=== PATIENT | male | born 1995 | race Caucasian/White ===

== ENCOUNTER 2023-08-23 08:36 | Outpatient (CLI) | payer BC, SELFPAY ==
--- NOTE | 2023-08-31 19:48 | WPDHOMESLEEP ---
Sleep Study - Home Unattended Date of Study: 08/23/23 Ordering Provider: Fran Yan APRN Interpreting Provider: Lela Arias, DO Home Sleep Study Type: Watch PAT Height: 1.7 m Weight: 99.79 kg Body Mass Index: 34.4 Neck Circumference (inches): 16 [place]: 8 Reason for Sleep Study Difficulty falling asleep. Unrefreshing sleep Sleep History The patient is a 28-year-old male with asthma, GERD, depression and history of tobacco use that had a sleep study ordered by the pulmonary group for evaluation of sleep apnea. The patient rarely awakens from sleep short of breath. He frequently awakens at night with heartburn, belching or cough. He occasionally snores and is occasionally loud enough that others complain. He frequently has trouble sleeping when he has a cold. He denies waking up gasping for air throughout the night. He denies having breathing problems at night observed by himself or others. He constantly sweats excessively at night. He rarely has heart palpitations or irregular heartbeats during the night. He rarely falls asleep during the day and rarely falls asleep while driving. He rarely experiences loss of muscle tone when extremely emotional. He frequently has trouble at school or work due to sleepiness. He rarely feels unable to move while waking up or falling asleep. He occasionally experiences vivid dreamlike scenes upon awakening or falling asleep. He denies feeling afraid of going to sleep. He rarely has nightmares and frequently remembers his dreams. He constantly has thoughts racing through his mind. He frequently feels sad, depressed and anxious. He frequently has muscular tension. He occasionally notices parts of his body jerk. He occasionally kicks during the night. He occasionally has crawling and aching feelings in his legs but rarely has leg pain during the night. He rarely grinds his teeth during sleep and rarely awakens with morning jaw pain. He is occasionally bothered by pain during the day but rarely awakened by pain during the night. He occasionally wakes up feeling stiff in the morning. He occasionally wakes up with sore or achy muscles. He occasionally wakes up with pain in the neck, spine or other joints. He goes to bed at 9:30 p.m. on weekdays and 11:00 p.m. on the weekends. It takes him 30 minutes up to several hours to fall asleep. He will wake up once throughout the night at most to either urinate or get a drink. He is able to fall back asleep within 10 minutes. He wakes up at 6:00 a.m. on weekdays and 8:00 a.m. on the weekends. He typically gets 7 hours of sleep per night. He will stay in bed for 15 minutes after waking up in the morning. He currently lives with his and child. He denies consuming any caffeinated beverages within 2 hours of bedtime. He denies engaging in physical exercise before bedtime. He will read and watch television before falling asleep. He denies taking naps in afternoon or the evening. He consumes 400 mg a caffeinated beverage per day. He quit smoking cigarettes 1 year ago. He denies alcohol use. He does admit to recreation drug use. [facility] Past Medical History Medical History Abdominal pain Diarrhea Overweight (BMI 25.0-29.9) Social History Social History Smoking status: Current every day smoker Tobacco type: e-cigarettes/vaping Alcohol intake: current Alcohol use details: rare Substance use: current Substance use type: marijuana Living arrangements: alone Occupation/Education: occupation Medications Home Medications Medication Instructions Recorded Confirmed Type bupropion HCl 300 mg 24 hr tablet, 300 mg PO DAILY 07/16/23 07/16/23 History extended release clonidine HCl 0.1 mg tablet 0.1 mg PO BID 07/16/23 07/16/23 History Sleep Procedure The sleep study was completed using [employer]
[2023-08-31 19:59] VITALS: BMI 34.4
--- NOTE | 2023-09-07 10:42 | SLEEP ---
new calls [id number]
== END 2023-08-23 14:00 | disposition home or self-care (01) ==
PROVIDERS: PCP Internal Medicine; Visit Provider Nurse Practitioner Family
DX: G47.10 Hypersomnia, unspecified (principal); R06.83 Snoring; G47.9 Sleep disorder, unspecified
CPT/HCPCS: 95800

== ENCOUNTER 2023-09-15 08:38 | Outpatient (CLI) | payer BC, SELFPAY ==
--- NOTE | 2023-10-04 18:03 | WPDSLEEPSTUD ---
Sleep Study Date of Study: 09/15/23 Ordering Provider: Fran Yan APRN Interpreting Physician: Lela Arias DO Sleep Study Type: Polysomnogram Height: 1.7 m Weight: 98.883 kg Body Mass Index: 34.1 Neck Circumference (inches): 16 [place]: 8 Reason for Sleep Study The patient had a WatchPAT home sleep test on 08/23/2023 that showed an overall AHI of 1.4 with desaturation down to 90%. However, he had an overall RDI of 9.6. Recommended in lab study due to discrepancy between AHI and RDI. Sleep History The patient is a 28-year-old male with asthma, GERD, depression and history of tobacco use that had a sleep study ordered by the pulmonary group for evaluation of sleep apnea.? The patient rarely awakens from sleep short of breath.? He frequently awakens at night with heartburn, belching or cough.? He occasionally snores and is occasionally loud enough that others complain.? He frequently has trouble sleeping when he has a cold.? He denies waking up gasping for air throughout the night.? He denies having breathing problems at night observed by himself or others.? He constantly sweats excessively at night.? He rarely has heart palpitations or irregular heartbeats during the night.? He rarely falls asleep during the day and rarely falls asleep while driving.? He rarely experiences loss of muscle tone when extremely emotional.? He frequently has trouble at school or work due to sleepiness.? He rarely feels unable to move while waking up or falling asleep.? He occasionally experiences vivid dreamlike scenes upon awakening or falling asleep.? He denies feeling afraid of going to sleep.? He rarely has nightmares and frequently remembers his dreams.??He constantly has thoughts racing through his mind.? He frequently feels sad, depressed and anxious.? He frequently has muscular tension.? He occasionally notices parts of his body jerk.? He occasionally kicks during the night.? He occasionally has crawling and aching feelings in his legs but rarely has leg pain during the night.? He rarely grinds his teeth during sleep and rarely awakens with morning jaw pain.? He is occasionally bothered by pain during the day but rarely awakened by pain during the night.? He occasionally wakes up feeling stiff in the morning.? He occasionally wakes up with sore or achy muscles.? He occasionally wakes up with pain in the neck, spine or other joints. He goes to bed at 9:30 p.m. on weekdays and 11:00 p.m. on the weekends.? It takes him 30 minutes up to several hours to fall asleep.? He will wake up once throughout the night at most to either urinate or get a drink.? He is able to fall back asleep within 10 minutes.? He wakes up at 6:00 a.m. on weekdays and 8:00 a.m. on the weekends.? He typically gets 7 hours of sleep per night.? He will stay in bed for 15 minutes after waking up in the morning.? He currently lives with his and child.? He denies consuming any caffeinated beverages within 2 hours of bedtime.? He denies engaging in physical exercise before bedtime.? He will read and watch television before falling asleep.? He denies taking naps in afternoon or the evening.? He consumes 400 mg a caffeinated beverage per day.? He quit smoking cigarettes 1 year ago.? He denies alcohol use.? He does admit to recreation drug use. COUNT INCLUDES [facility] Past Medical History Medical History Abdominal pain Diarrhea Overweight (BMI 25.0-29.9) Social History Social History Smoking status: Current every day smoker Tobacco type: e-cigarettes/vaping Alcohol intake: current Alcohol use details: rare Substance use: current Substance use type: marijuana Living arrangements: alone Occupation/Education: occupation Medications Home Medications Medication Instructions Recorded Confirmed Type bupropion HCl 300 mg 24 hr tablet, 300 mg PO DAILY 07/16/23 07/16/23 History
[2023-10-04 18:05] VITALS: BMI 34.1
== END 2023-09-16 07:38 | disposition home or self-care (01) ==
LOC: ANHCSM 08:40
PROVIDERS: PCP Internal Medicine; Visit Provider Nurse Practitioner Family
DX: G47.9 Sleep disorder, unspecified (principal); G47.10 Hypersomnia, unspecified; G47.8 Other sleep disorders
CPT/HCPCS: 95810